=== PATIENT | male | born 1950 | race Two or more races ===

== ENCOUNTER 2022-04-12 05:30 | Day surgery (SDC) | payer OTHER ==
[~2022-04-12] VITALS: Ht 172.7 cm; Wt 81.6 kg
[~2022-04-12 05:30] MED LIST: TELMISARTAN20 MG PO
== END 2022-04-12 13:45 | disposition home or self-care (01) ==
LOC: CIR.AMB 05:30
PROVIDERS: ATTEND Orthopaedic Surgery Hand Surgery
DX: S52.531A Colles' fracture of right radius, initial encounter for closed fracture (principal); Z20.822 Contact with and (suspected) exposure to COVID-19; I10 Essential (primary) hypertension; N40.0 Benign prostatic hyperplasia without lower urinary tract symptoms; Z86.16 Personal history of COVID-19
CPT/HCPCS: 25609; 25280; 25118; L8699